=== PATIENT | male | born 1970 | race Caucasian/White ===

== ENCOUNTER 2021-11-18 21:43 | Emergency (ER) | payer OTHER, SELFPAY ==
[2021-11-18] VITALS (7 sets, daily range): BP systolic 114–149; BP diastolic 74–102; PULSE 59–98; RESP 15–18; TEMP 36.7; O2SAT 95–99; BMI 36.1
--- NOTE | 2021-11-18 22:07 | EKG12_ITS ---
Test Reason : CP Blood Pressure : / mmHG Vent. Rate : 069 BPM Atrial Rate : 069 BPM P-R Int : 146 ms QRS Dur : 088 ms QT Int : 382 ms P-R-T Axes : 045 027 024 degrees QTc Int : 409 ms Normal sinus rhythm with sinus arrhythmia Low voltage QRS (Limb Leads) Confirmed by MISHA SAMSON, JATIN ([id number]), deputy editor in chief BILL SALMERON ([id number]) on 11/20/2021 1:04:43 PM Referred By: JEFF Confirmed By:JATIN CABRAL MD
[2021-11-18] MEDS: Aspirin 325 MG Tablet PO (22:16)
[2021-11-18] MEDS: 0.9% Normal Saline 1,000 ML 999 ML IV (22:18)
[2021-11-18] MEDS: Nitroglycerin SL (ED/IMG/CATH) 0.4 MG TABLET SL ×3 (22:18→23:01)
[2021-11-18 22:36] LABS: Absolute Lymphocyte Count 1.69 X10^3/uL (0.83-4.51); Absolute Neutrophil Count 4.8 X10^3/uL (2.0-7.7); Basophil# 0.03 X10^3/uL; Basophil% 0.4 % (0-1); Eosinophil# 0.13 X10^3/uL; Eosinophils% 1.9 % (0-5); Hemoglobin 14.5 g/dL (13.0-16.5); Lymphocyte # 1.69 X10^3/ul (0.83-4.51); Lymphocyte % 24.2 % (19-41); Mean Corpuscular Hgb 29.8 pg (27.0-32.0); Mean Corpuscular Volume 90.5 fL (80-94); Mean Platelet Vol. 9.7 fl (6.2-12.0); Monocyte# 0.31 X10^3/uL; Monocyte% 4.4 % (0-10); NRBC Flagged by Analyzer 0 % (0-5); Platelet Count 235 K/mm3 (150-450); RBC Distribution Width CV 13.1 % (11.6-14.6); RBC Distribution Width SD 43.1 fl (35.1-43.9); Red Blood Count 4.86 M/mm3 (4.6-6.2)
--- NOTE | 2021-11-18 22:38 | RAD_ITS ---
EXAM: XR CHEST, 2 VIEWS CLINICAL INDICATION: chest pain TECHNIQUE: Frontal and lateral views of the chest. This report was created using [employer] report generation technology. COMPARISON: None. FINDINGS: LUNGS AND PLEURAL SPACES: Unremarkable. No consolidation or edema. No pneumothorax. No effusion. HEART: Unremarkable. Cardiac silhouette not enlarged. MEDIASTINUM: Central airways and mediastinal contour are unremarkable. BONES/JOINTS: Unremarkable. SOFT TISSUES: Unremarkable. RAD/Chest PA and Lateral IMPRESSION: No radiographic evidence of acute cardiopulmonary disease. Electronically Signed: Pee Espinoza MD at 22:49 EDT ,
[2021-11-18 22:54] LABS: Anion Gap 7 (5-15); BUN 14 mg/dL (7-18); BUN/Creat Ratio 14.7 RATIO (10-20); Calcium,Total 9.2 mg/dL (8.5-10.1); Chloride 105 mmol/L (98-107); Creatinine, Serum 0.95 mg/dL (0.70-1.30); EST Glomerular Filtration Rate 89 mL/min (>60); Est Glom Filt Rate - Afr Amer 108 mL/min (>60); Estimated Creatinine Clearance 94.06 ml/min; Glucose 153 mg/dL (74-106); Magnesium 2.1 mg/dL (1.6-2.6); Potassium 3.9 mmol/L (3.5-5.1); Sodium Level 139 mmol/L (136-145); Troponin-I HS 4 pg/mL (3.0-78.0)
--- NOTE | 2021-11-18 23:28 | EDS_ITS ---
HPI History of Present Illness Chief Complaint: Chest Pain Narrative Narrative: Patient is a 51-year-old male with history of hypertension. He states around 3 or 4 in the afternoon he was stung by bee in the right forearm. He states he had some inflammation and swelling following this but not think much of it and does not have a true allergy to bees. He reports around 8:00 he noticed some midsternal chest discomfort with left-sided chest pain as well. He states there was no trauma or excessive activity he denies any fevers chills or cough. He states has been no nausea vomiting diaphoresis shortness of breath associated with this but because of the pain persisting for the past few hours presents for evaluation. [facility] Medical History Hyperlipemia Hypertension Home Medications atorvastatin 20 mg tablet 40 mg PO DAILY 11/18/21 [History Last Taken Unknown] benazepril 20 mg tablet (Lotensin) 20 mg PO DAILY 11/18/21 [History Last Taken Unknown] Allergy/AdvReac Type Severity Reaction Status Date / Time No Known Allergies Allergy Verified 11/18/21 21:48 Social History Smoking Status: Never smoker ROS ROS ED Constitutional Constitutional ED: Denies chills or fever(s) ENT ENT ED: Denies sore throat Cardiovascular Cardiovascular: Reports chest pain Respiratory/Chest Respiratory/Chest: Denies cough or dyspnea Gastrointestinal Gastrointestinal: Denies abdominal pain, diarrhea, nausea or vomiting Genitourinary Genitourinary ED: Denies dysuria Musculoskeletal Musculoskeletal: Denies myalgias Integumentary Reports rash and other Details: Positive insect bite Neurologic Neurologic: Denies headache(s) Hematologic/Lymphatic Hematologic/Lymphatic: Denies easy bleeding or easy bruising EXAM Physical Exam Const Vital Signs: 11/18/21 21:45 11/18/21 22:18 11/18/21 22:26 Temperature 98.1 F Temperature Source Temporal Pulse Rate 98 80 Respiratory Rate 15 Respiratory Effort Normal Non-Labored Blood Pressure 149/102 H 131/92 H Blood Pressure Mean 117 Pulse Ox 99 Oxygen Delivery Method Room Air 11/18/21 22:28 11/18/21 22:29 11/18/21 23:00 Temperature Temperature Source Pulse Rate 87 88 69 Respiratory Rate 18 18 Respiratory Effort Blood Pressure 119/87 H 119/87 H 123/85 H Blood Pressure Mean 97 97 Pulse Ox 95 96 Oxygen Delivery Method Room Air Room Air 11/18/21 23:01 11/18/21 23:42 11/19/21 01:29 Temperature Temperature Source Pulse Rate 69 59 L 69 Respiratory Rate 18 18 Respiratory Effort Blood Pressure 123/85 H 114/74 116/58 L Blood Pressure Mean 87 Pulse Ox 96 100 Oxygen Delivery Method Room Air Positive well nourished and well developed General Appearance ED: well developed HEENT Reports moist mucous membranes HEENT Narrative: No tongue or lip swelling no oral lesions no airway edema or compromise Eyes PERRL and EOMs intact bilaterally Neck supple and no JVD Neck Narrative: Carotid pulses are equal and symmetric Chest Wall Chest Narrative: There is reproducible left anterior chest wall pain on palpation without bony deformity or crepitance Resp normal respiratory effort and clear to auscultation bilaterally Cardio regular rate and regular rhythm Rate: other Other Details: Radial pulses are +2-4 bilaterally are equal and symmetric GI normal to inspection, nondistended, normoactive bowel sounds, non-tender and non-distended GI Narrative: No voluntary guarding or rigidity no pulsatile mass Auscultation: normoactive bowel sounds Palpation: soft Extremity normal to inspection Extremity Narrative: Patient has soft tissue swelling with erythema to the dorsal aspect of his right distal forearm with small superficial abrasion consistent with insect sting. Otherwise the exam is normal without asymmetric edema pitting edema and negative Homans' sign to the bilateral lower extremities. Neuro oriented x3 and CN's II-XII intact bilaterally Sensorium / Orientation: alert Psych mental status grossly normal Skin Skin Narrative: Soft tissue changes to the right forearm as documented above with localized insect sting reaction MDM MDM MDM Narrative Medical decision making narrative: Patient presented to the ER slightly hypertensive but otherwise with stable vital. He has no risk factors for DVT/PE and risk factors for cardiac disease are low being that he is over age 40 and has history of hypertension and hyperlipidemia. A basic cardiac work-up was obtained which shows an initial troponin of 4 with a 2-hour delta increasing by one-point to a value of 5 which is not clinically significant. On reevaluation the patient's had improvement of his chest pain and on exam there is no abdominal discomfort or pulsatile mass or difference in his carotid pulses to suggest dissection. Therefore at this time with improvement of symptoms and negative cardiac work-up I do not feel there is need for admission and patient is otherwise safe for discharge. Lab Data Attestation: I reviewed the patient's lab results. Labs: Laboratory Results - last 24 hr 11/18/21 11/18/21 11/19/21 22:23 22:23 00:34 WBC 7.0 RBC 4.86 Hgb 14.5 Hct 44.0 MCV 90.5 MCH 29.8 MCHC 33.0 RDW Std Deviation 43.1 RDW Coeff of Brianne 13.1 Plt Count 235 MPV 9.7 Immature Gran % (Auto) 0.100 Neut % (Auto) 69.0 Lymph % (Auto) 24.2 Bureau % (Auto) 4.4 Eos % (Auto) 1.9 Baso % (Auto) 0.4 Absolute Neuts (auto) 4.8 Absolute Lymphs (auto) 1.69 Nucleated RBC % 0 Sodium 139 Potassium 3.9 Chloride 105 Carbon Dioxide 27.0 Anion Gap 7 BUN 14 Creatinine 0.95 Estim Creat Clear Calc 94.06 Est GFR (MDRD) Af Amer 108 Est GFR (MDRD) Non-Af 89 BUN/Creatinine Ratio 14.7 Glucose 153 H Calcium 9.2 Magnesium 2.1 Troponin I High Sens 4 5 Radiography Diagnostic Testing: Clinical Impression(s) from Imaging Studies Chest X-Ray 11/18/21 22:38 IMPRESSION: No radiographic evidence of acute cardiopulmonary disease. Electronically Signed: Pee Espinoza MD at 22:49 EDT Reading Location ID and State: [address] [place] [address] Tel , Service support , 2 view chest x-ray as interpreted by the emergency medicine physician reveals no acute infiltrate pneumothorax or pleural effusion Discharge Plan Triage Chief Complaint: Chest Pain ED Provider: Christian Wetzel Dx/Rx/DC Orders Clinical Impression: Nonspecific chest pain, Local reaction to insect sting, Hypertension Instructions: Chest Pain [facility] Prescriptions: No Action atorvastatin 20 mg tablet 40 mg PO DAILY Label Comments: TAKE 1 TABLET BY MOUTH ONCE DAILY benazepril [Lotensin] 20 mg tablet 20 mg PO DAILY Primary Care Provider: Nas Kenney Referrals: Nas Kenney DO [Primary Care Provider] - Activity Restrictions/Additional Instructions: Please follow-up with your family doctor for repeat evaluation and return to the ER should you have any further concerns Disposition Disposition: Home, Self Care Discharge Date/Time: 11/19/21 01:30
[2021-11-18] MEDS: Ketorolac 30 MG/ML Syringe IV (23:41)
[2021-11-19 00:54] LABS: Troponin-I HS 5 pg/mL (3.0-78.0)
[2021-11-19 01:29] VITALS: BP 116/58; PULSE 69; RESP 18; O2SAT 100
== END 2021-11-19 01:30 | disposition home or self-care (01) ==
PROVIDERS: Emergency Provider Emergency Medicine; PCP Family Medicine; Visit Provider Emergency Medicine
DX: R07.9 Chest pain, unspecified (principal); E78.5 Hyperlipidemia, unspecified; T63.444A Toxic effect of venom of bees, undetermined, initial encounter; I10 Essential (primary) hypertension
CPT/HCPCS: 71046; 80048; 83735; 84484; 85025; 93005; 96361; 96374; 99284; J7030; A4216